=== PATIENT | male | born 1940 | race Caucasian/White ===

== ENCOUNTER 2019-08-17 23:42 | Inpatient (IN) ==
[2019-08-18] MEDS ORDERED: LORazepam 1 MG/2 ML VIAL IV STA (00:16)
[2019-08-18] MEDS ORDERED: ONDANSETRON INJ 2 MG/ML 2 ML VIAL IV STA ×2 (00:16→02:54)
[2019-08-18] MEDS: SODIUM CHLORIDE 0.9% 1000ML 1,000 ML IV SCH ×3 (00:41→18:37)
[2019-08-18 00:42] LABS: Basophils # (auto) 0.02 K/uL (0-0.2); Basophils % (auto) 0.2 %; Eosinophils # (auto) 0.17 K/uL (0-0.5); Eosinophils % (auto) 1.4 %; Hematocrit (blood only) 40.1 % (42-52); Hemoglobin 13.8 g/dL (14.0-18.0); Immature Granulocytes # (auto) 0.04 K/uL (0.00-0.02); Immature Granulocytes % (auto) 0.3 %; Lymphocytes % (auto) 14.2 %; Mean Corpuscular Hemoglobin 31.2 pg (25-34); Mean Corpuscular Hgb Conc 34.4 g/dL (32-36); Mean Corpuscular Volume 90.7 fL (80-100); Mean Platelet Volume 9.9 fL (7.4-10.4); Monocytes # (auto) 0.99 K/uL (0.11-0.59); Monocytes % (auto) 8.3 %; Neutrophils # (auto) 9.08 K/uL (1.4-6.5); Neutrophils % (auto) 75.6 %; Platelet Count 176 K/uL (130-400); RDW Coefficient of Variation 13.2 % (11.5-14.5); Red Blood Count 4.42 M/uL (4.7-6.1)
[2019-08-18 01:02] LABS: Alanine Aminotransferase 27 U/L (12-78); Albumin Level 3.6 gm/dl (3.4-5.0); Aspartate Aminotransferase 46 U/L (15-37); BUN Creatinine Ratio 15.9 (10-20); Blood Urea Nitrogen 20 mg/dl (7-18); Calcium 10.5 mg/dl (8.5-10.1); Carbon Dioxide 24 mmol/L (21-32); Chloride 110 mmol/L (98-107); Est GFR (African American) 61.3; Est GFR (Non-African American) 52.9; Glucose 150 mg/dl (70-99); Potassium 3.7 mmol/L (3.5-5.1); Sodium 140 mmol/L (136-145)
[2019-08-18 01:05] LABS: Albumin Globulin Ratio 1.2 (0.9-2); Alkaline Phosphatase 65 U/L (45-117); Bilirubin,Total 0.7 mg/dl (0.2-1); Total Protein 6.6 gm/dl (6.4-8.2)
[2019-08-18] MEDS ORDERED: DiphenhydrAMINE HCL 50 MG/ML VIAL IV STA (02:54)
--- NOTE | 2019-08-18 05:13 | History & Physical Report ---
Date of Service August 18, 2019 Assessment & Plan (1) Vertigo: Mr. Parrish is a 78-year-old male with a past medical history of prostate cancer s/p prostatectomy who presents to the emergency department due to the sudden onset of vertigo beginning at 10:30 PM, last evening. ED course: 1 L normal saline at 125 mls/hr, 1 mg IV Ativan, 4 mg Zofran IV x2, 25 mg IV Benadryl Vertigo/ambulatory dysfunction -Orthostatics ordered and normal -Additional imaging of brain ordered, noted below -Patient failed trial of ambulation twice in the emergency department, despite reporting an improvement in his symptoms -Meclizine ordered twice daily as needed for vertigo -PT/OT evals ordered History of CVA -Noncontrast CT of brain shows old infarct involving left frontal lobe with encephalomalacia - this is a new diagnosis for the patient -will complete stroke work-up with MRI brain, MRA head, echo, hemoglobin A1c and fasting lipid panel -Patient reportedly has had a recent normal carotid ultrasound, and therefore will not order MRA of neck -Aspirin 81 mg started -Neurology consult requested Prostate cancer -Status post prostatectomy -Follows with [place] on a yearly basis CODE STATUS: Full, but does not want invasive airway or mechanical ventilation DVT prophylaxis: SCDs Disposition: Admit to telemetry (2) Ambulatory dysfunction: (3) History of CVA (cerebrovascular accident): (4) Prostate cancer: History of Present Illness Chief Complaint: Vertigo, ambulatory dysfunction Primary Care Provider: Hamlet Lynch MD Mr. Parrish is a 78-year-old male with a past medical history of prostate cancer s/p prostatectomy who presents to the emergency department due to the sudden onset of vertigo beginning at 10:30 PM, last evening. He states that this occurred while he was sitting down. He reports that he felt the room was spinning. He denies any falls. He states that he was unable to walk because he felt off balance. He also endorsed feeling as though his body was "moving involuntarily." He denies any focal weakness of his arms or legs, or trouble with vision. He does report that he was sweating, and had several episodes of vomiting during this time. He reports that in the ambulance, he had difficulty with his speech. He states he feels much better now. He reports that this is never happened before. He does note that approximately 5 weeks ago, he had trou ble with double vision. He was seen by his primary care provider, and underwent a carotid ultrasound. He states that this was normal. He denies any prior history of heart attack, stroke, or TIA. 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 unfortunately suffering from pancreatic cancer Allergies Allergy/AdvReac Type Severity Reaction Status Date / Time No Known Allergies Allergy Unverified 08/18/19 00:22 Home Medications Home Medications Medication Instructions Recorded Confirmed Type [place] Pectin 1 dose pk PO DIRECTED 08/18/19 08/18/19 History Vitamin D3 Drops 1 dose PO DIRECTED 08/18/19 08/18/19 History levocarnitine tartrate 500 mg PO DIRECTED 08/18/19 08/18/19 History [L-Carnitine (tartrate)] Past Med/Surg History Medical History Prostate cancer Social History Preferred Language: Uzbek Beliefs That Will Affect Care: None Current Living Situation: Spouse Feels Safe at Home: Yes Safety Concerns: Feels Safe At This Time Smoking Status: Former smoker Tobacco Type: cigars ; Hx Alcohol Use: Yes Hx Substance Use: No Review of Systems Constitutional: no fever, no chills and no anorexia Eyes: + diplopia Ear, Nose, Mouth, Throat: + sore throat (Due to vomiting); no nasal congestion Respiratory: no cough, no dyspnea and no wheezing Cardiovascular: no chest pain, no palpitations, no syncope, no edema and no calf pain Gastrointestinal: + nausea and + vomiting; no abdominal pain and no change in bowel habits Genitourinary: no dysuria, no difficulty urinating and no urinary frequency Musculoskeletal: no back pain Integumentary: no rash and no lesions Neurologic: + gait abnormality, + dizziness and + abnormal speech; no falls, no localized weakness, no headache(s), no confusion and no memory loss Physical Exam Constitutional: WD/WN, vitals as above no acute distress Eyes: PERRL, conjunctivae normal, anicteric sclerae ENMT: external ear and nose normal, oropharynx normal Respiratory: normal respiratory effort, lungs clear to auscultation Cardiovascular: RRR, no murmur, no edema Gastrointestinal (Abdomen): normal bowel sounds, soft, nontender, no hepatosplenomegaly Musculoskeletal: no cyanosis or clubbing, extremities motor strength 5/5 Skin: no rashes, warm and dry Neurologic: PERRL, EOMI, accommodation nl, no face palsy, no dysarthria (Double vision noted when testing extraocular eye movements, no nystagmus) CN's II-XI intact bilaterally and moves all extremities; no focal motor deficits Speech / Cognition: normal speech Cranial nerves II to XII grossly intact Coordination intact Psychiatric: A+Ox3, euthymic affect Results & Data Vital Signs (Past 12 Hours) Vital Signs Temp Pulse Pulse Resp BP BP Pulse Ox 08/18/19 04:30 74 21 159/97 H 95 08/18/19 04:00 72 23 132/96 91 08/18/19 03:30 63 16 148/98 H 92 08/18/19 03:01 61 17 135/102 H 93 08/18/19 02:30 67 19 126/87 08/18/19 02:00 68 21 153/91 H 96 08/18/19 01:30 64 18 154/85 H 92 08/18/19 01:05 61 16 153/99 H 91 08/18/19 01:04 64 20 153/99 H 89 L 08/18/19 00:43 16 190/110 H 08/18/19 00:42 58 L 15 170/112 H 97 08/18/19 00:40 36.7 C 61 16 153/97 H 96 08/18/19 00:30 63 13 173/104 H 96 08/18/19 00:23 63 20 168/99 H 97 08/18/19 00:00 62 18 172/102 H 96 08/17/19 23:53 59 L 15 179/98 H 96 Code Status & VTE Plan VTE Prophylaxis Plan VTE Prophylaxis will be ordered: Yes Supervising Physician Co-Signing Physician Notes Patient was seen and examined by me personally. I reviewed the chart, the orders and discussed the case in detail with Dr. James Smith MD. I read this H&P and agree with its contents to entirety. Resident Activity Tracking Resident Involvement: Resident Care Provided Care Provided: Adult [facility] Medicine
[2019-08-18] MEDS ORDERED: PHARMACIST DISCHARGE MED REC CONSULT PRN (06:01)
[2019-08-18] MEDS ORDERED: ACETAMINOPHEN 325 MG TAB PO PRN (06:01)
[2019-08-18] MEDS ORDERED: MECLIZINE 12.5 MG TAB PO PRN (06:01)
--- NOTE | 2019-08-18 06:19 | Emergency Department Note ---
Entered by Aminata Mccoy acting as a scribe for Lisa Lucio MD History of Present Illness General Chief complaint: Dizziness Time Seen by Provider: 08/17/19 23:51 Source: patient History of Present Illness Provider complaint: dizziness Onset (ago): minute(s) (prior to arrival ) Location: head Pain Consistency: + other (improving ) Quality: + other (dizziness) Associated symptoms: + diaphoresis, + nausea/vomiting and + other (Positive pelvic tightness; Negative visual impairment; Negative fall; Negative head trauma;) The patient, who is a 78 year old male with a medical history of prostate cancer, presents to the Emergency Room with complaints of dizziness that occurred prior to arrival. The patient states that he first started to feel dizzy and decided to sit down. After this the patient states that his dizziness worsened, he started sweating profusely, became nauseous and then started violently vomiting. The patient states that he is feeling a deep tightness in his pelvic region. The patient explains that he urinated 5 minutes prior to arrival. The patient states that he emptied himself and had no trouble starting a stream of urine. The patient denies vision impairment, fall or head trauma. The patient's expresses that the patient has been experiencing a double vi darrell for a couple of days. The patient reports that he had a radical prostatectomy. The patient states that his symptoms are improving. Home Medications Home Medications Medication Instructions Recorded Confirmed Type COD LIVER OIL 1 cap PO DAILY #0 01/18/15 History EPINEPHRINE (EPIPEN 2-ALIREZA) #0 01/18/15 History [place] Pectin 1 dose pk PO DIRECTED 08/18/19 08/18/19 History Vitamin D3 Drops 1 dose PO DIRECTED 08/18/19 08/18/19 History levocarnitine tartrate 500 mg PO DIRECTED 08/18/19 08/18/19 History [L-Carnitine (tartrate)] Allergies Allergy/AdvReac Type Severity Reaction Status Date / Time hornet venom Allergy Severe ANAPHYLAXIS Verified 08/18/19 07:45 Past Med/Surg History Medical History Prostate cancer Surgical History H/O radical prostatectomy Social History Preferred Language: Swedish Communication Ability: Effective Beliefs That Will Affect Care: None marital status: Current Living Situation: Spouse Feels Safe at Home: Yes Safety Concerns: Feels Safe At This Time Smoking Status: Former smoker Tobacco Type: cigars ; Hx Alcohol Use: Yes Hx Substance Use: No Review of Systems See HPI for pertinent positives & negatives. and A total of 10 systems reviewed and were otherwise negative Physical Exam Vital Signs Vital Signs - 24 hr 08/18/19 05:30 08/18/19 05:35 08/18/19 06:03 Temperature 36.4 C L Temperature Source Oral Pulse Rate 64 70 Pulse Rate [Bilateral] 66 Pulse Rate from SpO2 Sensor 65 Pulse Rhythm [Bilateral] Regular Pulse Strength [Bilateral] Normal Respiratory Rate 21 22 18 Respiratory Effort / Characteristics Non-Labored Spontaneous Respiratory Depth Normal Respiratory Pattern Regular Blood Pressure 153/83 H 153/83 H Blood Pressure [Right Arm] 161/87 H Blood Pressure Mean 106 Blood Pressure Mean [Right Arm] 111 Blood Pressure Position [Right Arm] Lying Pulse Oximetry 92 92 95 Oxygen Delivery Method Room Air Room Air 08/18/19 06:59 08/18/19 08:07 08/18/19 11:06 Temperature 36.8 C 36.5 C Temperature Source Oral Oral Pulse Rate 68 Pulse Rate [Bilateral] 63 64 Pulse Rate from SpO2 Sensor Pulse Rhythm [Bilateral] Pulse Strength [Bilateral] Respiratory Rate 18 18 Respiratory Effort / Characteristics Non-Labored Spontaneous Respiratory Depth Normal Respiratory Pattern Regular Blood Pressure Blood Pressure [Right Arm] 122/72 147/73 H Blood Pressure Mean Blood Pressure Mean [Right Arm] 88 97 Blood Pressure Position [Right Arm] Lying Sitting Pulse Oximetry 94 95 Oxygen Delivery Method Room Air Room Air Room Air Vital signs reviewed. General: Acutely ill-appearing 78 year old male, in no significant distress. Positive emesis HEENT: No scleral icterus, PERRLA, neck supple. Atraumatic. No nystagmus Cardiovascular: Regular rate and rhythm, no extra sounds. Pulmonary: Clear to auscultation bilaterally, normal work of breathing. Abdomen: Soft, nontender, nondistended, positive bowel sounds. Musculoskeletal: Atraumatic, no peripheral edema. Neurologic: Patient awake alert and oriented x 3, full strength in all 4 extremities. Cranial nerves 2 through 12 grossly intact. Skin: Warm, mildly diaphoretic, no rash Course 0022: Past medical records reviewed. The patient was evaluated in room B6. A complete history and physical exam was performed. 0040: The patient was administered Ativan and Zofran. 0416: I reviewed the patient's case with , [facility] Hospitalist. He will evaluate the patient for further management. Administered Medications Acetaminophen (Tylenol) 650 mg PO Q4H PRN PRN Reason: Pain or Fever Stop: 09/17/19 06:00 Last Admin: 08/19/19 04:50 Dose: 650 mg Documented by: [id number] Aspirin (Ecotrin Ectab) 81 mg PO QAM ROMAN Stop: 09/17/19 08:59 Last Admin: 08/18/19 07:42 Dose: 81 mg Documented by: [id number] Sodium Chloride (Nss 1000ml) 1,000 mls @ 100 mls/hr IV .Q10H ROMAN Stop: 09/17/19 00:29 Last Admin: 08/19/19 04:51 Dose: 100 mls/hr Documented by: [id number] Infusion: 08/19/19 04:37 Dose: 100 mls/hr Documented by: [id number] Admin: 08/18/19 18:37 Dose: 100 mls/hr Documented by: [id number] Infusion: 08/18/19 18:37 Dose: 0 mls/hr Documented by: [id number] Admin: 08/18/19 10:25 Dose: 125 mls/hr Documented by: [id number] Infusion: 08/18/19 05:51 Dose: 0 mls/hr Documented by: [id number] Admin: 08/18/19 00:41 Dose: 125 mls/hr Documented by: [id number] Ioversol (Optiray 320 125ml) 119 ml IV ONCE PRN PRN Reason: Interaction Checking Stop: 08/22/19 14:11 Last Admin: 08/18/19 14:13 Dose: 119 ml Documented by: [id number] Discontinued Medications Diphenhydramine HCl (Benadryl) 25 mg IV NOW STA Stop: 08/18/19 02:55 Last Admin: 08/18/19 05:27 Dose: Not Given Documented by: [id number] Lorazepam (Ativan) 1 mg in 2 mls @ 2 mls/min IV NOW STA Stop: 08/18/19 00:17 Last Admin: 08/18/19 00:40 Dose: 2 mls/min Documented by: [id number] Ondansetron HCl (Zofran) 4 mg IV NOW STA Stop: 08/18/19 00:17 Last Admin: 08/18/19 00:40 Dose: 4 mg Documented by: [id number] Ondansetron HCl (Zofran) 4 mg IV NOW STA Stop: 08/18/19 02:55 Last Admin: 08/18/19 05:28 Dose: Not Given Documented by: [id number] Medical Decision Making Differential Diagnosis Differential diagnosis includes: benign positional vertigo, dehydration, hypovolemia, anemia, tumor, infection, hypoglycemia, electrolyte abnormalities, cardiac sources, intracerebral event, toxicologic, neurologic, as well as others were entertained. Medical Records Attestation: I reviewed the patient's medical records. Home Medications Current Medication List: was personally reviewed by me Laboratory Data Attestation: I reviewed the patient's lab results. Result diagrams: 08/18/19 00:34 08/18/19 00:34 Lab Results 08/18/19 08/18/19 Range/Units 00:34 00:34 WBC 12.00 H (4.8-10.8) K/uL RBC 4.42 L (4.7-6.1) M/uL Hgb 13.8 L (14.0-18.0) g/dL Hct 40.1 L (42-52) % MCV 90.7 (80-100) fL MCH 31.2 (25-34) pg MCHC 34.4 (32-36) g/dL RDW Std Deviation 44.0 (36.4-46.3) fL RDW Coeff of [place] 13.2 (11.5-14.5) % Plt Count 176 (130-400) K/uL MPV 9.9 (7.4-10.4) fL Immature Gran % (Auto) 0.3 % Neut % (Auto) 75.6 % Lymph % (Auto) 14.2 % [place] % (Auto) 8.3 % Eos % (Auto) 1.4 % Baso % (Auto) 0.2 % Immature Gran # (Auto) 0.04 H (0.00-0.02) K/uL Neut # (Auto) 9.08 H (1.4-6.5) K/uL Lymph # (Auto) 1.70 (1.2-3.4) K/uL [place] # (Auto) 0.99 H (0.11-0.59) K/uL Eos # (Auto) 0.17 (0-0.5) K/uL Baso # (Auto) 0.02 (0-0.2) K/uL Sodium 140 (136-145) mmol/L Potassium 3.7 (3.5-5.1) mmol/L Chloride 110 H (98-107) mmol/L Carbon Dioxide 24 (21-32) mmol/L Anion Gap 7.0 (3-11) BUN 20 H (7-18) mg/dl Creatinine 1.28 (0.6-1.4) mg/dl Est Cr Clr Drug Dosing Not Reportable Est GFR ( Amer) 61.3 Est GFR (Non-Af Amer) 52.9 BUN/Creatinine Ratio 15.9 (10-20) Glucose 150 H (70-99) mg/dl Calcium 10.5 H (8.5-10.1) mg/dl Total Bilirubin 0.7 (0.2-1) mg/dl AST 46 H (15-37) U/L ALT 27 (12-78) U/L Alkaline Phosphatase 65 (45-117) U/L Total Protein 6.6 (6.4-8.2) gm/dl Albumin 3.6 (3.4-5.0) gm/dl Globulin 3.0 (2.5-4.0) gm/dl Albumin/Globulin Ratio 1.2 (0.9-2) Imaging Data Radiologist's Impression: Radiology results as stated below per my review and the radiologist's interpretation: CT Head: Old infract involved the left frontal lobe with encephalomalacia No acute hemorrhage or acute infarct. No mass or mass effect. No midline shift or hydrocephalus. Diffuse parenchymal atrophy. Opacification of the left sphenoid sinus. Radiologist: Alcides Roman MD Study ready at 01:06 and initial results transmitted at 01:17. ECG Data Attestation: I personally reviewed and interpreted this ECG as follows: Indication: + other (dizzy) Rate (beats per minute): 64 Rhythm: + normal sinus (with sinus arhythmia ) ECG Intervals/blocks: + Normal QT ECG ST segments: + Normal ST segments ECG Findings: no PACs and no PVCs Blood Pressure Blood Pressure Findings: Elevated blood pressure Blood Pressure Disposition: further management by hospitalist MDM Narrative This patient was evaluated and appeared to be in some discomfort. Patient did complain of dizziness and "being on a ride" and was actively vomiting. IV fluids were initiated, patient was given IV Zofran and Benadryl. There were no focal neurologic deficits on exam. CT scan of the head was obtained and is negative for acute abnormality however there is evidence of old frontal lobe infarct with encephalomalacia. Patient's EKG reveals a normal sinus rhythm without ectopy or acute ischemia. Patient's vomiting subsided quite quickly. Patient has a slightly elevated WBC at 12, likely stress mediated. I did discuss the option of admission with the patient who declined. He states his dizziness was gone and he denied any gait instability, however this is quite different than the initial presentation. An ambulatory trial was attempted by nursing however the patient lost his balance. He did not fall but did require significant assistance. Patient stated his grandson was coming to the emergency department and he preferred discharge. He was observed, given IV Ativan and additional Zofran. A repeat ambulatory trial was attempted which was improved but not study. I again encouraged the patient to stay in the hospital and he finally agreed. Dr. Tripp of the hospitalist service was consulted for further management. Patient is aware of the plan and agrees. Impression & Plan Vertigo, Vomiting Discharge Plan Visit Data *Final* Discharge Date/Time: 08/18/19 05:35 Chief Complaint: Dizziness ED Provider: Lisa Lucio Discharge Problem: Vertigo, Vomiting Patient Disposition: Admitted As Inpatient Discharge Instructions Interventions: ED Discharge Assessment Last Done: 08/18/19 05:35 Discharge Problem: Vomiting Qualifiers: Vomiting type: unspecified Vomiting Intractability: non-intractable Nausea presence: with nausea Qualified Code(s): R11.2 - Nausea with vomiting, unspecified The scribe's documentation has been prepared under my direction and personally reviewed by me in its entirety. I confirm that the note above accurately reflects all work, treatment, procedures, and medical decision making performed by me.
[2019-08-18] MEDS ORDERED: ONDANSETRON INJ 2 MG/ML 2 ML VIAL IV PRN (06:30)
--- NOTE | 2019-08-18 06:32 | CT Scan Report ---
CT head/brain wo con CLINICAL HISTORY: 78 years-old Male with vertigo, vomiting. Acute vertigo with vomiting TECHNIQUE: Multiple axial CT images of the head were obtained without contrast. A dose lowering tech nique was utilized adhering to the principles of ALARA. CT DOSE: 614.27 mGy.cm COMPARISON: None. FINDINGS: No acute intracranial hemorrhage, midline shift, intracranial mass, hydrocephalus, territorial ischem ia or abnormal extra-axial collection. Encephalomalacia related to remote infarct within the left fro ntal lobe. Age-related involutional change. Senescent calcifications of the lentiform nuclei. Cerebra l vascular calcifications are noted. The calvarium is intact. Completely opacified left sphenoid sinus with opacification of the left sph enoethmoidal recess and a few posterior left ethmoid air cells. Partially imaged mild mucosal thicken ing of the left maxillary sinus with complete opacification of the left frontal sinus. Mastoid air ce lls are clear. IMPRESSION: 1. No acute intracranial abnormality. 2. Remote infarct of the left frontal lobe. 3. Paranasal sinus disease as above. The above report was generated using voice recognition software. It may contain grammatical, syntax o r spelling errors. Electronically signed by: Sadiq Noble M.D. 08/18/2019 6:31 AM
[2019-08-18] MEDS: ASPIRIN 81 MG ECTAB PO SCH (07:42)
--- NOTE | 2019-08-18 09:24 | Magnetic Resonance Report ---
MR brain wo con HISTORY: 78 years-old Male vertigo, ambulatory dysfunction, prior cva acute vertigo COMPARISON: CT head and MRA head of same day TECHNIQUE: Multiplanar multisequence MRI of the brain was obtained without the use of IV contrast. FINDINGS: Staff Electrical Engineer localizer images demonstrate no gross extracranial abnormality. There are several punctate foci of diffusion noted within the superior and mid aspect of the left cerebellar hemisphere. These lesio ns demonstrate decreased signal on ADC map with slightly increased T2/FLAIR signal. No acute or subac [place] territorial infarct. No cerebellar tonsillar herniation. Degenerative changes noted about the willie ged cervical spine. There is no acute intracranial hemorrhage, midline shift, abnormal extra axial co llection, hydrocephalus or intracranial mass. Mild age-related involutional change. Encephalomalacia of the left frontal lobe with gliosis related to remote infarct. Minimal scattered T2/FLAIR hyperinte nsities about the white matter suggest chronic microvascular ischemic disease. Major flow voids at th e level the skull base appear patent. Trace right and small left mastoid effusions. Mild mucosal thic kening of the paranasal sinuses with complete opacified left sphenoid sinus. 1.3 cm area of polypoid mucosal thickening of the inferior right maxillary sinus. Completely opacified left frontal sinus. Or bits, skull and soft tissues are unremarkable. IMPRESSION: 1. Several punctate foci of resected diffusion involving the superior and mid left cerebellar hemisph ere compatible with areas of acute infarct. 2. No acute territorial infarct, intracranial hemorrhage or midline shift. 3. Age-related involutional changes with remote infarct of the left frontal lobe. 4. Suggestion of minimal chronic microvascular ischemic disease. 5. Mastoid effusions with paranasal sinus disease as above. The above report was generated using voice recognition software. It may contain grammatical, syntax o r spelling errors. Electronically signed by: Sadiq Noble M.D. 08/18/2019 9:23 AM
--- NOTE | 2019-08-18 09:25 | Magnetic Resonance Report ---
MR angio head wo con HISTORY: prior cva, vertigo, ambulatory dysfunction TECHNIQUE: 3-D [id number] MRA of the brain was performed without contrast. COMPARISON STUDY: None. FINDINGS: Visualized intracranial internal carotid arteries, distal vertebral arteries, and basilar a rtery are widely patent. There is no significant stenosis, occlusion, or aneurysm seen within the graeme ateral ACAs, MCAs, or paleology professor. IMPRESSION: No significant stenosis, occlusion, or aneurysm within the [place]. The above report was generated using voice recognition software. It may contain grammatical, syntax or spelling errors. Electronically signed by: Kermit Magana M.D. 08/18/2019 9:23 AM
--- NOTE | 2019-08-18 12:59 | History & Physical Bridge Note ---
Date of Service August 18, 2019 History & Physical Bridge Note I have examined the patient, reviewed the History & Physical and in the interval since the performance of the History & Physical I have noted the following changes of clinical significance: Feeling much better. Reports dizziness, incoordination is improved. Reports he takes several supplements at home and brings a list with him from home of this. Tells me he is very hesitant to take any Rx drugs but is willing to take ASA. He is however willing to take multiple supplements as recommended by his DIL who is a [employer] Operator. He reports he will never take a statin drug as per recommendation of his daughter who has researched the evidence behind statins. He has a mild bifrontal headache at this time. No weakness, no visual changes.No palpitations, n ochest pain. 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 He is very active, does a lot of walking and daily stretches and exercises Vitals reviewed, tele NSR rates 60-70s NAD, AAOx3 EOMI,PERRLA RRR no mgr CTAB no wcr Abs +BS soft NT ND Ext no calf tenderness or edema, 2+ DP pulses Neuro no nystagmus, CN 2-12 intact, Strength full throughout, no pronator drift MRI with acute left cerebellar CVA. MRA head negative, ECHO pending Ca++ 10.5 -continue ASA -declines statin, will consider RYR -awaiting Neuro consult PT/OT consults pending -obtaining old carotid US and lipid panel from 2-3 weeks ago through [facility] -check CTA neck given posterior circulation CVA -check CTA head -f/u ECHO -monitor on tele continue IVFs, permissive HTN SCDs for DVT proph
[2019-08-18] MEDS ORDERED: OPTIRAY 320 125ml IV PRN (14:12)
--- NOTE | 2019-08-18 14:35 | CT Scan Report ---
CT angio head w con, CT angio neck with con CLINICAL HISTORY: 78 years-old Male with cva cerebellar. Acute strokelike symptoms with left cereb ellar infarction COMPARISON STUDY: MRI brain and MRA head of same day TECHNIQUE: Following the IV administration of 119 cc of Optiray 320, CT angiogram of the head and nec k was performed from the skull apex to the vertex. Images are reviewed in the axial, sagittal, and co vicky planes. 3-D MIPS images are created and assessed. IV contrast was administered without complica tion. All measurements were obtained according to NASCET criteria. A dose lowering technique was util ized adhering to the principles of ALARA. CT DOSE: 540.60 mGy.cm FINDINGS: Opacified pulmonary arterial tree is unremarkable. Unremarkable thoracic aortic arch. Patency of the imaged bilateral subclavian arteries. Patent bilateral common carotid arteries. Mixed plaque of the b ilateral carotid bulbs results in less than 50% luminal narrowing bilaterally. Calcified plaque of th e cavernous and supraclinoid segments without high-grade stenosis. The middle and anterior cerebral a rteries appear patent bilaterally. Codominant vertebral arteries. Atheromatous plaque at the origin o f the right vertebral artery results in mild stenosis. Mild tortuosity of the left vertebral artery. The basilar and bilateral posterior cerebral arteries appear patent. There is no aneurysm, dissection , high-grade stenosis or proximal branch occlusion. Cerebral venous sinuses are patent. Encephalomala calos of the left frontal lobe from remote infarct. No abnormal intracranial enhancement. There is no pneumothorax. 4 mm subpleural right lung apex solid nodule incidentally noted. Lung apice s are otherwise generally clear. 1.1 cm hypodense right thyroid nodule. Soft tissues are unremarkable . The bones appear intact. Multilevel facet arthrosis with spondylitic spurring. Small left mastoid e ffusion. Mild mucosal thickening of the paranasal sinuses with complete opacification of the left fro ntal and left sphenoid sinus. IMPRESSION: 1. Unremarkable CTA of the head and neck without aneurysm, dissection, high-grade stenosis or proxima l branch occlusion. 2. Encephalomalacia of the left frontal lobe from remote infarct. 3. Additional incidental findings as above. The above report was generated using voice recognition software. It may contain grammatical, syntax o r spelling errors. Electronically signed by: Sadiq Noble M.D. 08/18/2019 2:33 PM
--- NOTE | 2019-08-18 16:24 | Billing Data ---
Coding Level of Care Code 31037 OBS Care - Level 3
--- NOTE | 2019-08-18 19:15 | Neurology Consultation ---
Date of Consultation August 18, 2019 Assessment & Plan (1) Cerebellar stroke: Weston Parrish is a 78 yo man w/PMH of prostate cancer s/p prostatectomy and h/o hernia repair x3 who p/t [facility] after acute onset of nausea, vomiting, gait imbalance and dysarthria. Symptom localization: cerebellum Stroke mechanism: most likely cardioembolic, less likely hypercoagulable in the setting of prostate cancer Stroke WorkUp: - CT head: no hemorrhage, area of encephalomalacia in the left frontal lobe - CTA head/neck: no LVO, high grade stenosis or aneurysm - MRI brain: punctuate acute infarcts in the left cerebellum, chronic left frontal infarct and left cerebellar infarct - MRA head/neck: no LVO - TTE: pending, will consider OMAR - Telemetry: pending - A1c: pending - FLP: pending - Troponin, TSH: pending Stroke Management: - Continuous cardiac monitoring, consider loop recorder or 30 day event monitor prior to d/c if telemetry here unrevealing - Vitals, Neurochecks, NIHSS per unit routine - BP parameters: SBP CAP 220, IV Labetalol/Hydralazine PRN - Consult speech, PT, OT for supportive management - Will debt and budget counselor concerning stroke education, smoking cessation, healthy diet, physical activity, weight loss - Follow up with PCP for assistance with outpatient goals (BP <135/85, LDL <70, A1c <7) - Follow up in neurology clinic in 6-8 weeks Secondary Stroke Prevention: - Antiplatelet: ASA 81mg po daily/plavix 75mg daily (long discussion about using this combination for just 30 days then stopping the plavix; he would like to look up plavix first but would consider it for a short period of time) - Anticoagulation: Not indicated at this time - Statin: recommend atorvastatin; patient reports that he is strongly against using a statin or fenofibrate. He will attempt to control cholesterol with diet modifications and wants to consider red yeast rice HTN: - BP parameters, as above - EKG and troponin pending FEN/GI: - Diet: Cardiac HH diet and PO meds given absence of bulbar signs or symptoms - Monitor lytes and replete PRN Glucose Control: - Sliding scale insulin and accuchecks per primary team to avoid hyperglycemia Thank you for this interesting consult. Please call or text with any questions. (2) History of CVA (cerebrovascular accident): History of Present Illness Attending Physician: Agatha Lim MD Weston Parrish is a 78 yo man w/PMH of prostate cancer s/p prostatectomy and h/o hernia repair x3 who p/t [facility] after acute onset of nausea, vomiting, gait imbalance and dysarthria. 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 Reports that he was in his normal state of health walking to his bathroom when he had acute onset of dizziness, nausea and projectile vomiting. He had to grab the wall for balance and felt like he might fall. He also noticed slurred speech and felt "off", so called EMS. He denied experiencing any numbness, tingling or weakness during the time and reports that dizziness and nausea/vomiting have resolved at this time. He denied any prior history of stroke-like symptoms other than transient diplopia about 5 weeks ago. He had a carotid doppler at that time that was reportedly normal. In the ED, CTH showed no hemorrhage, area of encephalomalacia in the left frontal lobe. MRI brain showed punctuate acute infarcts in the left cerebellum, chronic left frontal infarct and left cerebellar infarct. CTA H&N showed no LVO, high grade stenosis or aneurysm. Labs notable for WBC 12.00, Plts 176, Cr 1.28, glucose 150, calcium 10.5, phosphorus 2.1, elevated PTH. NIHSS on examination today is 1 for dysmetria in the LUE. He denies any current complaints and had many questions about possible medication treatments as he reports living a healthy lifestyle otherwise with good diet and exercise, as well as supplements and hesitation to take any medications. Allergies Allergy/AdvReac Type Severity Reaction Status Date / Time hornet venom Allergy Severe ANAPHYLAXIS Verified 08/18/19 07:45 Home Medications Home Medications Medication Instructions Recorded Confirmed Type COD LIVER OIL 1 cap PO DAILY #0 01/18/15 History EPINEPHRINE (EPIPEN 2-ALIREZA) #0 01/18/15 History [place] Pectin 1 dose pk PO DIRECTED 08/18/19 08/18/19 History Vitamin D3 Drops 1 dose PO DIRECTED 08/18/19 08/18/19 History levocarnitine tartrate 500 mg PO DIRECTED 08/18/19 08/18/19 History [L-Carnitine (tartrate)] Patient History Medical History Prostate cancer Social History Preferred Language: [place]dean Communication Ability: Effective Beliefs That Will Affect Care: None marital status: Current Living Situation: Spouse Feels Safe at Home: Yes Safety Concerns: Feels Safe At This Time Smoking Status: Former smoker Tobacco Type: cigars ; Hx Alcohol Use: Yes Hx Substance Use: No Review of Systems Review of Systems: 14 point review of systems completed and negative except as in HPI. Physical Exam Physical Exam: General Exam: GEN: NAD, sitting in examination bed. HEENT: No conjunctival injection, no rhinorrhea. CV: RRR on monitor, no significant edema. PULM: Nonlabored respirations on room air. Neuro Exam: MS: Awake and Alert. Oriented to person, place, and date. Speech fluent and appropriate without dysarthria or paraphasic errors. Language intact including naming, comprehension, repetition. Cognition and memory grossly intact. Attention intact. No neglect. CN: Visual rose full. No extinction to double simultaneous stimuli. Unable to visualize fundi. PERRLA OU. EOMI without nystagmus. Facial sensation intact to LT. Facial muscles full and symmetric. Hearing intact to finger rub bilaterally. Uvula midline with symmetric palatal elevation. Shoulder shrug normal. Tongue m idline. MOTOR: Normal bulk and tone. No pronator drift. BUE strength 5/5 at deltoids, biceps, triceps, wrist flexors and extensors, and finger flexors bilaterally. BLE strength 5/5 at iliopsoas, hamstrings, quadriceps, tibialis anterior, and gastrocnemius bilaterally. REFLEXES: 2+ and brisk at biceps, triceps, brachioradialis, 2+ patella, and trace Achilles bilaterally. Flexor plantar responses bilaterally. SENSORY: Intact to LT/vibration/temperature throughout, no extinction to double simultaneous stimuli. COORDINATION: + dysmetria on [id number] with the LUE. Normal Nena bilaterally. GAIT: Deferred due to physical status. NIH STROKE SCALE 1A. Level of Consciousness (0-3) = 0 1B. LOC Questions (0-2) = 0 1C. LOC Commands (0-2) = 0 2. Best Horizontal Gaze (0-2) = 0 3. Visual Rose (0-3) = 0 4. Facial Palsy (0-3) = 0 5. Motor Arm Right (0-4) = 0 Left (0-4) = 0 6. Motor Leg Right (0-4) = 0 Left (0-4) = 0 7. Limb Ataxia (0-2) = 1 8. Sensory (0-2) = 0 9. Best Language (0-3) = 0 10. Dysarthria (0-2) = 0 11. Extinction and Inattention (0-2) = 0 NIHSS TOTAL = 1 Results & Data Vital Signs (Past 12 Hours) Vital Signs Temp Pulse Pulse Resp BP Pulse Ox 08/18/19 16:00 63 08/18/19 15:18 37.0 C 62 19 142/84 H 94 08/18/19 11:06 36.5 C 64 18 147/73 H 95 08/18/19 08:07 68 PG Care Time/CCT Total # of Minutes Spent Total Time Spent with Patient: Total time spent is greater than 50% in coordination of care (as documented) at patient's floor/unit and/or counseling patient:
[2019-08-19] MEDS: SODIUM CHLORIDE 0.9% 1000ML 1,000 ML IV SCH ×2 (04:51→13:42)
[2019-08-19 07:21] LABS: Basophils # (auto) 0.04 K/uL (0-0.2); Basophils % (auto) 0.5 %; Eosinophils # (auto) 0.17 K/uL (0-0.5); Eosinophils % (auto) 2.3 %; Hematocrit (blood only) 39.2 % (42-52); Hemoglobin 13.2 g/dL (14.0-18.0); Immature Granulocytes # (auto) 0.01 K/uL (0.00-0.02); Immature Granulocytes % (auto) 0.1 %; Lymphocytes # (auto) 1.43 K/uL (1.2-3.4); Lymphocytes % (auto) 19.5 %; Mean Corpuscular Hemoglobin 30.9 pg (25-34); Mean Corpuscular Hgb Conc 33.7 g/dL (32-36); Mean Corpuscular Volume 91.8 fL (80-100); Mean Platelet Volume 10.1 fL (7.4-10.4); Monocytes # (auto) 0.98 K/uL (0.11-0.59); Monocytes % (auto) 13.3 %; Neutrophils # (auto) 4.72 K/uL (1.4-6.5); Neutrophils % (auto) 64.3 %; Platelet Count 166 K/uL (130-400); RDW Coefficient of Variation 13.6 % (11.5-14.5); RDW Standard Deviation 45.6 fL (36.4-46.3); Red Blood Count 4.27 M/uL (4.7-6.1); White Blood Count 7.35 K/uL (4.8-10.8)
[2019-08-19 07:49] LABS: Estimated Average Glucose 123 mg/dl; Hemoglobin A1C 5.9 % (4.5-5.6)
[2019-08-19 07:53] LABS: BUN Creatinine Ratio 12.5 (10-20); Calcium 9.5 mg/dl (8.5-10.1); Creatinine Clr Calc Pharmacy 56.8 ml/min; Est GFR (African American) 80.6; Est GFR (Non-African American) 69.6
[2019-08-19] MEDS: ASPIRIN 81 MG ECTAB PO SCH (09:27)
--- NOTE | 2019-08-19 14:05 | Ultrasound Report ---
US venous doppler LE BI HISTORY: Pain. Edema. CVA, PFO-assess for DVT COMPARISON STUDY: None. FINDINGS: There is normal compressibility, flow, and augmentation within the bilateral lower extremit y deep venous systems. IMPRESSION: No DVT within the right or left lower extremity. The above report was generated using voice recognition software. It may contain grammatical, syntax or spelling errors. Electronically signed by: Kermit Magana M.D. 08/19/2019 2:03 PM
--- NOTE | 2019-08-19 14:54 | Discharge Summary ---
Date of Service August 19, 2019 Admission HPI Per Admitting Provider Mr. Parrish is a 78-year-old male with a past medical history of prostate cancer s/p prostatectomy who presents to the emergency department due to the sudden onset of vertigo beginning at 10:30 PM, last evening. He states that this occurred while he was sitting down. He reports that he felt the room was spinning. He denies any falls. He states that he was unable to walk because he felt off balance. He also endorsed feeling as though his body was "moving involuntarily." He denies any focal weakness of his arms or legs, or trouble with vision. He does report that he was sweating, and had several episodes of vomiting during this time. He reports that in the ambulance, he had difficulty with his speech. He states he feels much better now. He reports that this is never happened before. He does note that approximately 5 weeks ago, he had trouble with double vision. He was seen by his primary care provider, and underwent a carotid ultrasound. He states that this was normal. He denies any prior history of heart attack, stroke, or TIA. 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 unfortunately suffering from pancreatic cancer Principal Diagnosis Acute ischemic cerebellar CVA Discharge Exam Vitals reviewed, tele NSR rates 50-70s, some PVCs NAD, AAOx3 EOMI,PERRLA RRR no mgr CTAB no wcr Abs +BS soft NT ND Ext no calf tenderness or edema, 2+ DP pulses Neuro no nystagmus, CN 2-12 intact, Strength full throughout, no pronator drift Discharge Data Allergies Allergy/AdvReac Type Severity Reaction Status Date / Time hornet venom Allergy Severe ANAPHYLAXIS Verified 08/18/19 07:45 Consultations 08/18/19 04:17 ED Decision to Admit Stat 08/18/19 06:01 Consult Case Management - Discharge Planning Routine Consult Neurology Routine Ordered Studies 08/18/19 00:16 CT head/brain wo con Urgent 08/18/19 06:01 MR angio head wo con Urgent MR brain wo con Routine 08/18/19 12:32 CT angio head w con Routine CT angio neck with con Routine 08/19/19 12:22 US venous doppler LE Urgent ECHO Hospital Course (1) Acute CVA (cerebrovascular accident): Presented with N/V, dizziness, gait dysfunction, found to have multiple punctate left cerebellar ischemic CVAs and old left frontal CVA he was unaware of on brain MRI. Symptoms were fortunately greatly improved by the time of discharge CTA head/neck negative ECHO with PFO with right to left shunt, LE Dopplers negative for DVT LDL as outpt significantly elevated at 191, here 143-pt declines statin but is considering Red yeast rice after I presented him with printed copies of abstracts from a few studies proving the importance of statins with secondary prevention in CVA -Neurology consult appreciated -started ASA 81mg daily, Neuro also recommending 30 days of Plavix but pt declines for now-wants to research Plavix on his own prior to starting -Neuro also recommending evaluation by Interventional Cardiology to close his PFO--> pt and outright refusing this even after counseling about possibility it could further reduce his risk for paradoxical embolism/CVA--> suggest referral to Cardiology at [place] or [place] as per patient preferences just to hear more about the risk/benefit -recommend follow up with Neuro as outpt -BPs mildly elevated here but in setting of acute CVA-permissive HTN and no treatment needed for HTN at this time as typically he reports BPs very well controlled as outpt (2) Hypercalcemia: iPTH came back elevated at 141, Ca++ 10.5, Vit D level normal at 37, phos low 2.1. Suspect primary hyperparathyroidism--> will need Endocrine follow up and 24 hr calcium urine test as outpt CT neck does show a 1.1 cm thyroid nodule, but question if is a parathyroid adenoma? I discussed all results with patient (3) Hyperparathyroidism: as above in hypercalcemia (4) Hyperlipidemia: LDL 191 on outpt lab testing and 143 here -declining statin but considering RYR as above (5) Thyroid nodule: 1.1 cm on right as above -f/u with Endocrine (6) Pulmonary nodule: 4mm RUL apex pulm nodule noted on CT neck No history of smoking and is low risk -likely no follow up needed (7) Interatrial septal aneurysm with PFO: as above With Right to Left shunt Stable for dc to home Total Time Total Time Spent Total Time Spent (In Minutes): >30 min Total Time Includes: Examination of the Patient, Discharge Planning, Medication Reconciliation and Communication With Other Providers (Neurology) Discharge Plan Discharge Items Patient Disposition: Home - Self-Care Reason For Visit: VERTIGO, GAIT ABNORMALITY Discharge Diagnosis: Acute cerebellar ischemic stroke Condition on Discharge: Good Activity: As commented below Lifting: Gradually increase as tolerated Bathing: No limitations Exercise/Sports: Gradually increase as tolerated Driving/Machine Use: Resume after 3 days if no further dizziness Weightbearing: Full weightbearing Non-emergency contact: Primary Care Provider and Neurologist Call non-emergency contact if: you have any medication questions and your symptoms worsen Follow-up/Referrals: [facility] Endocrinology [Other] (Please, follow up at [facility] Endocrinology Office. *A conference center coordinator from this office will contact you with the appointment information. If you have any questions, call the office at [phone].) Keri Pearson MD [Physician] - 09/26/19 8:15 am (Please, follow up at [facility] Neurology Office with Dr. Pearson on ThursdaySeptember 26 at 8:15 am. *The office is located at [address] [place] [address] in [place]. If you need to change this appointment, call the office at [phone]. ) Erma Lynch MD [Primary Care Provider] - 08/25/19 10:10 am (Please, follow up at Dr. Lynch' office with his associate, Dr. Kermit Christensen, on August 25 at 10:10 am. *If you need to change this appointment, call the office at [phone]. A 30 DAY CARDIAC EVENT MONITOR WILL BE MAILED TO YOUR HOME. THE KIT WILL INCLUDE EASY TO FOLLOW INSTRUCTIONS. THE RESULTS WILL BE SENT TO DR. ERMA LYNCH.) Diet: Heart Healthy [facility] Attending Provider Instructions: You were admitted with dizziness and found to have a stroke in your left cerebellum (back of the brain). Because you had a previous stroke (old, seen on CT scan) and with new small multiple strokes this time, it is possible you have an abnormal heart rhythm called atrial fibrillation. A 30 day cardiac event monitor will be mailed to your house for you to wear. This will evaluate for any abnormal heart rhythm you may have. You do have a Patent Foramen Ovale (PFO) on your heart Echocardiogram. This is a small hole between the top two chambers of your heart. It is possible that your strokes have come from small blood clots passing across this hole from the right side of the heart to the left side and then up to the brain. Neurology is recommending that you see an engineer specialist to discuss possible closure of your PFO to prevent future strokes. You were started on aspirin 81mg once daily. The Neurologist was also recommending you take Plavix 75mg once daily x 30 days, but you declined to take this. A statin drug is also indicated to prevent future stroke, but you have chosen instead to take red yeast rice-this can be purchased at a drug store. Of note, your calcium levels were mildly elevated and this may be caused by an elevated Parathyroid hormone level. You also were found to have a thyroid nodule incidentally on a CT scan of your neck. Please ask your PCP about a referral to Endocrinology for further evaluation of both of these issues. A small pulmonary nodule was also seen on the CT scan, but this is most likely benign and should not require any further follow up. Please follow up with the Neurologist in 6-8 weeks, and your PCP within 1 week. Risk Factors for Stroke: You can reduce your chances of stroke by working with your medical provider to adopt a healthy lifestyle. Some specific ways to lower your chance of stroke are: * If you are a smoker, now is the time to stop smoking cigarettes * If you are diabetic, improve the control of your blood sugars * Avoid excessive amounts of alcohol * Control high blood pressure * Lose weight if you are overweight * Be sure to lead an active lifestyle * Eat a healthy diet low in salt, cholesterol and fat You should know about other risk factors for stroke that you are unable to control. These include: * Age 55 years or older * Male gender * Certain racial groups: , or / * Family History of Stroke, Mini stroke or Heart Attack * Sickle Cell Disease Follow Up: It is important for you to keep your follow up appointments with your medical provider. Who to Call and When: Medical Emergencies: Call 911 immediately if you experience any of the following warning signs and symptoms of Stroke: * Sudden numbness or weakness of the face, arm or leg, especially on one side of the body * Sudden confusion, trouble speaking or understanding * Sudden trouble seeing in one or both eyes * Sudden trouble walking, dizziness, loss of balance or coordination * Sudden severe headache with no cause Do not delay calling 911 if you experience any warning signs or symptoms of a stroke. Delay in seeking medical attention may affect what treatments can be given to you. . Pending Studies at Discharge: Yes (TSH with reflex to Free T4 (thyroid studies)) Stand-Alone Forms: Medications to Prevent Stroke, [facility] Medications and DC Order Prescriptions: New aspirin [Ecotrin Low Strength] 81 mg Tablet,Delayed Release (Dr/Ec) 81 mg PO QAM Qty: 30 RF: 0 red yeast rice 600 mg tablet 600 mg PO BID Qty: 60 RF: 0 Continued EPINEPHRINE (EPIPEN 2-ALIREZA) 0.3 MG INJECTION Qty: 0 RF: 0 levocarnitine tartrate [L-Carnitine (tartrate)] 500 mg Capsule 500 mg PO DIRECTED RF: 0 Spink Pectin 1 dose pk PO DIRECTED RF: 0 Discontinued COD LIVER OIL 1 CAP capsule 1 cap PO DAILY Qty: 0 RF: 0 Vitamin D3 Drops 1 dose PO DIRECTED RF: 0 No Action Alpha-Glycosyl Isoquercitrin capsule PO DAILY RF: 0 resveratrol 50 mg Capsule 50 mg PO DAILY RF: 0 Cdp-Choline capsule PO DAILY RF: 0 Discharge Orders: Discharge Order (Routine); Ordered 08/19/19 Ordered By: Agatha Lim Admission Data Admit Date/Time: 08/18/19 13:07 Attending Provider: Agatha Lim Admit Provider: James Smith Primary Care Provider: Erma Lynch Other Providers: Abhijit Tripp ; Keri Pearson Other Interventions: Discharge Summary Assessment (RN) Last Done: 08/19/19 14:37 DC Date/Time DO NOT enter until pt leaves facility: 08/19/19 16:17
--- NOTE | 2019-08-19 15:11 | Pharmacy Report ---
Pharmacist Stroke Counseling - Date of Service August 19, 2019 - Scope: Pharmacy has been consulted to provide medication discharge counseling for this patient admitted with ischemic stroke as per the Pharmacist Discharge Counseling for Stroke Patients Protocol. - Medications on Discharge: Home Medications Medication Instructions Recorded Confirmed EPINEPHRINE (EPIPEN 2-ALIREZA) #0 01/18/15 [place] Pectin 1 dose pk PO DIRECTED 08/18/19 08/18/19 levocarnitine tartrate 500 mg PO DIRECTED 08/18/19 08/18/19 L-Carnitine (tartrate) New Rx's Medication Instructions Recorded aspirin [Ecotrin Low Strength] 81 mg PO QAM #30 tab 08/19/19 red yeast rice 600 mg PO BID #60 tab 08/19/19 - Action: The above medications, specifically ones for stroke treatment/prophylaxis, have been reviewed in detail with the patient and his and daughter prior to discharge. This includes indication, common adverse reactions, drug interactions, and medication administration. Medication counseling has been employed using the teach-back method to ensure understanding. - Outcome: The patient and his and daughter have demonstrated understanding of the medications. Please note, they are aware that the pharmacist will call them within 72 hours post-discharge to confirm that the appropriate medications are being taken and answer any further medication related questions the patient might have at that time. Contact information Individual to be contacted: Patient Phone number: [phone] Best time to call: anytime Additional comments: Patient prefers to only use Aspirin 81mg, no clopidogrel, and no statins. Patient had additional questions about red yeast rice. Provide patient and patient's daughter and information from [facility]. Thank you for allowing pharmacy to be involved in the care of this patient. Please call [phone] or [phone] with any additional questions
[2019-08-19] MEDS ORDERED: STROKE PATIENT DISCHARGE STA (15:49)
--- NOTE | 2019-08-22 12:45 | Pharmacy Report ---
Pharmacist Post D/C Phone Note - Phone Note: Date of phone call: August 22, 2019. Individual with whom pharmacist spoke to: KALPANA HAMM The following questions were reviewed during the phone call with responses listed below each: Can you tell me the medications that you are currently taking as well as when and how you take each medication? -See Table Below - Note: I have added 3 new supplements that patient has been taking on a heide ly basis. He was taking gingko but I advised to stop since this can increase bleeding risk along with ASA. Patient plans to stop. When have you missed any doses of your medications? - Has not yet started the red yeast rice. Patient had quite a few questions on this as well as statins with incidence of diabetes. He has a daughter in law who is a patient care technician and a family member who has an oil and gas exploration technician in her extended family. Patient requested that I email him with information on the studies of statins and diabetes for him and family members to review before emmanuel ng an informed decision. Please see below for information that was sent to the patient on this subject. What side effects are you having from your medications, specifically, the new medications you were started on? - None. No bruising/bleeding noted. What questions do you have about your medications? - Nothing further than noted above What problems are you having obtaining your medications? - None, just wants to make a decision before moving forward When is your next appointment with your primary care doctor? - with Dr. Sherwood (PCP), also has upcoming appt with neurology Additional comments: Information sent to patient: - There have been various studies that have looked at this and most have found that higher intensity statins may increase the incidence of diabetes more than moderate or low intensity statins. In addition, statins in general have a higher incidence than placebo. It appears that most studies have found that the odds of developing diabetes is only 10% higher than patients not exposed to st atins. The newest analysis done in 2016 estimated that high dose statin therapy would lead to 50-100 patients developing diabetes if 10,000 patients were treated. Of note, one study found that these effects seem to be related to the statin's property of inhibiting HMG CoA reductase and the monacolins in red yeast rice have this same property. I have included the studies below. Hope this is helpful to you! 1. Statins and risk of incident diabetes: a collaborative meta-analysis of randomised statin trials. Elham Mock, Kraig Cunningham, Maximino HM, Narciso P, Daniel BM, Mayorga AJ, Keren SR, Junaid CurryJ, Abner DJ, Abad JW, Bradley PW, Heriberto CJ, Marlee DJ, Mila RG, Hever J, David BR, Payam SL, Supai R, Marjosi RM, Maggioni AP, Tavazzi L, Brian G, Holli J, Olive TR, Travis TJ, Arabella AM, Gurinder MB, Luiza JR, Irina H, Ohashi Y, Mizuno K, Ray KK, Graves I Lancet. 2010;375(3233):735. Epub 2009Nov 27. 2. Risk of incident diabetes with intensive-dose compared with moderate-dose statin therapy: a meta-analysis. Kraig Cunningham, Keren HOFFMAN, Narciso Moreau, Dionicio SA, Kal JE, Ayan DD, Amol DA, Ashley P, Khoi CP, Hosea MS, Jessee E, Carmen CurryJ, Morataya, Saskia CALI, Olive TR, Joseph MJ, Elham N, Ray KK BENJAMIN. 2011;305(19):2556. 3. HMG-coenzyme A reductase inhibition, type 2 diabetes, and bodyweight: evidence from genetic analysis and randomised trials. Antoine DI, Kraig Cunningham, Khoi KB, Blue MV, Rafael JE, Keane T, Sofat R, Stender S, Kevin PC, Robson RA, Tati M, Verraf N, Sharp SJ, Shahab Y, Jaz C, Shan C, Robby A, Amnomi A, Lilli K, Gisele J, Everette P, Jovani JA, Rohini F, Lilli YR, Crystal G, Peggy J, Flo MC, Ming I, Alexandre SG, Tha DL, Bartolo NG, Marielle NC, martin Mckeon YT, Alejandro RB, Nicky JA, Trevon R, Bacedivya M, Tamvalerie A, Pamyriamk A, Topor-Maria Antonia R, Alin U, Maltheresa S, Astrid D, Will B, Cristal E, de Mikhail U, Vesari F, Star I, Abad JW, Mila RG, Sloan GJ, Hansen PA, Ирина Bergeron, Sara W, Jcarlos Flores AH, Jaxon OH, Alvarado A, Ferny PA, Jeff CB, Cedric JG, Zulema D, DIAGRAM Consortium, MAGIC Consortium, InterAct Consortium, Holli J, Luiza JR, Arabella AM, Kennedi AC, Delicia R, Brian G, Christine PS, Priscilla NR, Ayan DD, Olive TR, Amshahana P, Irina H, Junaid CurryJ, Aurea CurryD, Moe DI, Pavan PM, Gabino AP, Olga Lidia L, Ray KK, Se Lancet. 2015;385(0717):351. Epub 2013Jul 05. 4. Interpretation of the evidence for the efficacy and safety of statin therapy. Solomon R, Santos C, Triston J, Caridad J, Cory C, Matilda L, Blossom R, Taya J, Pittman GD, Geneva D, Cannon S, Law M, MacDemetrihowilliam S, Eric S, Mat B, Priscilla N, Kraig D, Pavan P, Luis I, Reg A, Moose P, Isidoro K, Christine P, Vijay J, Smeeelizabeth L, Anupama N, Ty S, Peto R Lancet. 2016;388(04359):2615. Epub 2015Jun 19. As per the Pharmacist Discharge Counseling for Stroke Patients Protocol, this phone call has been completed within 72 hours of discharge. Thank you for allowing us to be involved in the care of this patient. - Home Medications: Home Medications Medication Instructions Recorded Confirmed EPINEPHRINE (EPIPEN 2-ALIREZA) #0 01/18/15 Camanche Pectin 1 dose pk PO DIRECTED 08/18/19 08/18/19 levocarnitine tartrate 500 mg PO DIRECTED 08/18/19 08/18/19 [L-Carnitine (tartrate)] Alpha-Glycosyl Isoquercitrin PO DAILY 08/22/19 Cdp-Choline PO DAILY 08/22/19 resveratrol 50 mg PO DAILY 08/22/19 08/22/19 New Rx's Medication Instructions Recorded aspirin [Ecotrin Low Strength] 81 mg PO QAM #30 tab 08/19/19 red yeast rice 600 mg PO BID #60 tab 08/19/19
== END 2019-08-19 16:17 | disposition home or self-care (01) | DRG 65 ==
LOC: EDSEX → 2S 23:42 → ED 23:42 → MERGE 08-18 04:57 → SUATTDRO 08-18 04:57 → 2S 08-18 05:35